=== PATIENT | male | born 1980 | race Caucasian/White ===

== ENCOUNTER 2023-10-11 12:15 | Emergency (ER) | payer MEDICAID, OTHER ==
[~2023-10-11] VITALS: Ht 175.3 cm; Wt 86.2 kg
[2023-10-11 12:21] VITALS: BP_SYST 178; PULSE 114; TEMP 97.4; O2SAT 96
[2023-10-11] MEDS: NACL 0.9% 1,000 ML IV ONE (13:13)
[2023-10-11] MEDS: cloNIDine HCL 0.1 MG TABLET PO ONE ×2 (13:14→13:59)
[2023-10-11] MEDS: KETOROLAC TROMETHAMINE 30 MG VIAL IVP ONE (13:19)
[2023-10-11 13:30] LABS: INFLUENZA TYPE A Negative (NEGATIVE); INFLUENZA TYPE B NEGATIVE (NEGATIVE)
[2023-10-11] MEDS ORDERED: NIRM1TAB9 PO (13:30)
[2023-10-11] MEDS ORDERED: IBUP-1969 PO (13:30)
[2023-10-11 14:40] VITALS: BP_SYST 157; PULSE 89; RESP 22; TEMP 97.4; O2SAT 97
== END 2023-10-11 14:40 | disposition home or self-care (01) ==
LOC: SED 12:15
DX: U07.1 COVID-19 (principal); I10 Essential (primary) hypertension; R00.0 Tachycardia, unspecified; Z79.899 Other long term (current) drug therapy
CPT/HCPCS: 99285; 96374; 71045; 96361; 87426; 36415; 93005; 87804 ×2; J1885; J7030